=== PATIENT | female | born 1990 | race Caucasian/White ===

== ENCOUNTER 2018-09-18 20:33 | Outpatient (CLI) | payer MEDICAID ==
[~2018-09-18 20:33] MED LIST: BUTA1CAP30 PO; CIPR500T87 PO; FAMO20TA37 PO; FLUC150T2 PO; OXYC-302 PO; PREN1TAB52 PO; PRENATAL VITAMIN
== END 2018-09-18 23:15 | disposition home or self-care (01) ==
LOC: LDOP 20:33
PROVIDERS: ATTEND Obstetrics & Gynecology
DX: Z04.1 Encounter for examination and observation following transport accident (principal); Z34.02 Encounter for supervision of normal first pregnancy, second trimester; Z3A.19 19 weeks gestation of pregnancy
CPT/HCPCS: 36415; 76805; 85460

== ENCOUNTER 2019-01-23 06:45 | Inpatient (IN) | payer MEDICAID ==
[~2019-01-23] VITALS: Ht 167.6 cm; Wt 72.7 kg
[2019-01-23 07:10] VITALS: BP 128/83
[2019-01-23] MEDS ORDERED: OXYTOCIN 30U/ 0.9% NaCL 500ML 500 ML IV PRN (07:21)
[2019-01-23] MEDS ORDERED: OXYTOCIN 30U/ 0.9% NaCL 500ML 500 ML IV ONE (07:21)
[2019-01-23] MEDS ORDERED: D5%-LACTATED RINGERS 1,000 ML IV SCH (07:21)
[2019-01-23] MEDS ORDERED: SODIUM CHLORIDE FLUSH 10ML SYR IVF PRN (07:30)
[2019-01-23] MEDS ORDERED: ONDANSETRON 2MG/ML, 2ML IVPush PRN (07:30)
[2019-01-23] MEDS ORDERED: CALCIUM CARBONATE 500 MG TAB.CHEW PO PRN (07:30)
[2019-01-23] MEDS ORDERED: FENTANYL PF 100 MCG/2ML IV PRN (07:30)
[2019-01-23] MEDS ORDERED: MISOPROSTOL 25 MCG TABLET VG PRN (07:30)
[2019-01-23] MEDS ORDERED: FENTANYL PF 100 MCG/2ML IVPush PRN (07:30)
[2019-01-23] MEDS: LACTATED RINGERS 1,000 ML IV SCH ×2 (07:47→23:57)
[2019-01-23 08:04] LABS: BASOPHILS # (AUTO) 0.03 x10^3/uL (0-0.1); BASOPHILS % (AUTO) 0 % (0-1); EOSINOPHILS # (AUTO) 0.05 x10^3/uL (0-0.4); EOSINOPHILS % (AUTO) 1 % (1-7); LYMPHOCYTES # (AUTO) 1.39 x10^3/uL (1-3.4); LYMPHOCYTES % (AUTO) 17 % (22-44); MD NO; MEAN CORPUSCULAR HEMOGLOBIN 30.9 pg (27.0-34.8); MEAN CORPUSCULAR VOLUME 93.4 fL (80-100); MEAN PLATELET VOLUME 6.8 fL (7.4-10.4); MONOCYTES % (AUTO) 9 % (2-9); NEUTROPHILS # (AUTO) 5.79 x10^3/uL (1.8-6.8); NEUTROPHILS % (AUTO) 73 % (42-75); PLATELET COUNT 206 x10^3/uL (130-400); RED BLOOD COUNT 4.37 x10^6/uL (3.82-5.3); RED CELL DISTRIBUTION WIDTH 13.7 % (9.6-15.2)
[2019-01-23] MEDS ORDERED: MISOPROSTOL 25 MCG TABLET ONE (08:35)
[2019-01-23 08:51] LABS: HEMOGLOBIN A1C 5.3 % (4.2-6.3)
[2019-01-23] MEDS ORDERED: LIDOCAINE 1%, 20ML ONE (08:59)
[2019-01-23] MEDS ORDERED: MISOPROSTOL 200 MCG TABLET ONE (08:59)
[2019-01-23] MEDS ORDERED: NEWBORN KIT ONE (08:59)
[2019-01-23] MEDS ORDERED: OXYTOCIN 30U/ 0.9% NaCL 500ML 500 ML ONE (08:59)
[2019-01-23 09:02] LABS: MICROSCOPIC AUTO
[2019-01-23 09:16] LABS: AMPHETAMINE SCREEN, URINE Negative (Negative); BARBITURATE SCREEN, URINE Positive (Negative); BENZODIAZEPINE SCREEN, URINE Negative (Negative); CANNABINOID SCREEN, URINE Negative (Negative); COCAINE SCREEN, URINE Negative (Negative); METHADONE SCREEN, URINE Negative (Negative); OPIATE SCREEN, URINE Negative (Negative)
[2019-01-23] MEDS ORDERED: ACETAMINOPHEN 325 MG TABLET ONE ×2 (14:17→20:45)
[2019-01-23] MEDS: ACETAMINOPHEN 325 MG TABLET PO PRN ×2 (14:19→20:46)
[2019-01-23] MEDS ORDERED: FENTANYL PF 100 MCG/2ML ONE (17:18)
[2019-01-23] MEDS ORDERED: FENTANYL/BUPIV./NS/PF 250 ML EPIDCONT SCH ×2 (19:58→20:27)
[2019-01-23] MEDS ORDERED: LACTATED RINGERS 500 ML IVBOLUS PRN (20:00)
[2019-01-23] MEDS: LACTATED RINGERS 1,000 ML IVBOLUS PRN ×2 (20:04→20:51)
[2019-01-23] MEDS ORDERED: EPHEDRINE 50 MG/ML, 1ML IVPush PRN (20:30)
[2019-01-23] MEDS ORDERED: LACTATED RINGERS 1,000 ML IVBOLUS PRN (20:30)
[2019-01-23] MEDS ORDERED: NALOXONE 0.4 MG/ML, 1ML IVPush PRN (20:30)
[2019-01-23] MEDS ORDERED: BUPIVACAINE 0.25% ONE ×2 (20:30→20:56)
[2019-01-23] MEDS ORDERED: FENTANYL PF 500 MCG, BUPIVACAINE/PF 0.5%, 30ML 62.5 ML in SODIUM CHLORIDE 0.9% 177.5 ML EPIDCONT SCH (20:30)
[2019-01-23] MEDS ORDERED: LIDOCAINE/PF 1.5%-EPI 1:200K, 30ML ONE (20:31)
[2019-01-23] MEDS ORDERED: FENTANYL/BUPIV./NS/PF 250 ML EPIDCONT ONE ×2 (20:56)
[2019-01-24] MEDS ORDERED: ACETAMINOPHEN 325 MG TABLET ONE ×2 (00:49→10:06)
[2019-01-24] MEDS: ACETAMINOPHEN 325 MG TABLET PO PRN ×2 (00:51→10:11)
[2019-01-24] MEDS ORDERED: DIPHENHYDRAMINE 50 MG/ML, 1ML IVPush ONE (03:28)
[2019-01-24] MEDS ORDERED: DIPHENHYDRAMINE 50 MG/ML, 1ML ONE (03:30)
[2019-01-24] MEDS: LACTATED RINGERS 1,000 ML IV SCH ×2 (08:42→20:03)
[2019-01-24] MEDS ORDERED: FENTANYL PF 100 MCG/2ML ONE (12:02)
[2019-01-24] MEDS ORDERED: MEPERIDINE/PF 50 MG/ML ONE (12:23)
[2019-01-24] MEDS ORDERED: MEPERIDINE/PF 25MG/0.5ML IVPush PRN (12:30)
[2019-01-24] MEDS ORDERED: OXYcodone IR 5MG TABLET PO PRN (19:00)
[2019-01-24] MEDS ORDERED: MEASLES,MUMPS&RUBELLA VACC/PF 0.5 ML SQ PRN (19:00)
[2019-01-24] MEDS ORDERED: OXYcodone/APAP 5/325MG TABLET PO PRN (19:00)
[2019-01-24] MEDS ORDERED: ACETAMINOPHEN 325 MG TABLET PO PRN ×2 (19:00)
[2019-01-24] MEDS ORDERED: CALCIUM CARBONATE 500 MG TAB.CHEW PO PRN (19:00)
[2019-01-24] MEDS ORDERED: OXYTOCIN 10 UNITS/ML, 1ML IM PRN (19:00)
[2019-01-24] MEDS ORDERED: MAGNESIUM HYDROXIDE 8%, 30ML UDC PO PRN (19:00)
[2019-01-24] MEDS ORDERED: METHYLERGONOVINE 0.2 MG/ML IM PRN (19:00)
[2019-01-24] MEDS ORDERED: ONDANSETRON 2MG/ML, 2ML IV PRN (19:00)
[2019-01-24 19:15] VITALS: BP 135/74
[2019-01-24] MEDS ORDERED: BUTALBIT/ACETAMIN/CAFF/CODEINE CAPSULE PO PRN (19:30)
[2019-01-24] MEDS: IBUPROFEN 600 MG TABLET PO PRN (22:25)
[2019-01-24 22:30] VITALS: BP 123/80
[2019-01-24] MEDS: OXYTOCIN 30U/ 0.9% NaCL 500ML 500 ML IV SCH (22:30)
[2019-01-25 01:35] VITALS: BP 110/70
[2019-01-25] MEDS: OXYTOCIN 30U/ 0.9% NaCL 500ML 500 ML IV SCH ×2 (04:49→20:46)
[2019-01-25 04:50] VITALS: BP 121/79
[2019-01-25] MEDS: IBUPROFEN 600 MG TABLET PO PRN ×3 (04:52→22:59)
[2019-01-25 06:46] LABS: BASOPHILS # (AUTO) 0.03 x10^3/uL (0-0.1); BASOPHILS % (AUTO) 0 % (0-1); EOSINOPHILS # (AUTO) 0.08 x10^3/uL (0-0.4); EOSINOPHILS % (AUTO) 1 % (1-7); LYMPHOCYTES # (AUTO) 1.53 x10^3/uL (1-3.4); LYMPHOCYTES % (AUTO) 14 % (22-44); MD NO; MEAN CORPUSCULAR HEMOGLOBIN 31.7 pg (27.0-34.8); MEAN CORPUSCULAR HGB CONC 33.2 g/dL (32.4-35.8); MEAN CORPUSCULAR VOLUME 95.4 fL (80-100); MEAN PLATELET VOLUME 7.3 fL (7.4-10.4); MONOCYTES # (AUTO) 0.98 x10^3/uL (0.2-0.8); MONOCYTES % (AUTO) 9 % (2-9); NEUTROPHILS # (AUTO) 8.61 x10^3/uL (1.8-6.8); NEUTROPHILS % (AUTO) 77 % (42-75); PLATELET COUNT 175 x10^3/uL (130-400); RED CELL DISTRIBUTION WIDTH 13.5 % (9.6-15.2)
[2019-01-25 07:34] VITALS: BP 117/81
[2019-01-25] MEDS: PRENATAL VIT/IRON/FA 1 EACH TABLET PO SCH (08:04)
[2019-01-25] MEDS: DOCUSATE 100 MG CAPSULE PO PRN ×2 (08:04→22:58)
[2019-01-25 12:30] VITALS: BP 112/78
[2019-01-25 22:50] VITALS: BP 123/83
[2019-01-26] MEDS: OXYTOCIN 30U/ 0.9% NaCL 500ML 500 ML IV SCH (00:49)
[2019-01-26 07:05] VITALS: BP 127/84
[2019-01-26] MEDS: PRENATAL VIT/IRON/FA 1 EACH TABLET PO SCH (07:42)
[2019-01-26] MEDS: DOCUSATE 100 MG CAPSULE PO PRN (07:42)
[2019-01-26] MEDS: IBUPROFEN 600 MG TABLET PO PRN (07:42)
[2019-01-26] MEDS ORDERED: OXYC-302 PO (13:36)
[2019-01-26] MEDS ORDERED: IBUP-1222 PO (13:36)
== END 2019-01-26 19:00 | disposition home or self-care (01) | DRG 807 ==
LOC: LDIP 06:45 → 2NW 01-24 21:29
PROVIDERS: ADMIT Obstetrics & Gynecology; ATTEND Obstetrics & Gynecology
PROC: 10E0XZZ Delivery of Products of Conception, External Approach (ICD-10-PCS; principal; 2019-01-24)
PROC: 3E0R3BZ Introduction of Anesthetic Agent into Spinal Canal, Percutaneous Approach (ICD-10-PCS; 2019-01-24)
PROC: 00HU33Z Insertion of Infusion Device into Spinal Canal, Percutaneous Approach (ICD-10-PCS; 2019-01-24)
DX: O36.63X0 Maternal care for excessive fetal growth, third trimester, not applicable or unspecified (principal); Z37.0 Single live birth; Z3A.36 36 weeks gestation of pregnancy
CPT/HCPCS: 36415; J7121; 80307; 81001; 82947; 83036; 85025; 86850; 86900; G0378; J2175; J3010; J3490; J1200; J2590; J7120